=== PATIENT | female | born 1955 | race Caucasian/White ===

== ENCOUNTER → 2017-12-06 | Outpatient (CLI) | payer BC | END | disposition home or self-care (01) | LOC: GMAL 17:08 | PROVIDERS: ATTEND Family Medicine | DX: S61.409A Unspecified open wound of unspecified hand, initial encounter (principal) ==

== ENCOUNTER → 2019-04-08 | Outpatient (CLI) | payer BC | LOC: GMAL 10:53 | PROVIDERS: ATTEND Family Medicine | DX: Z00.00 Encounter for general adult medical examination without abnormal findings (principal) ==